=== PATIENT | male | born 1960 | race Caucasian/White ===

== ENCOUNTER 2020-10-01 19:56 | Emergency (ER) | payer MEDICARE ==
[2020-10-01 20:12] VITALS: BP 143/95; PULSE 102; TEMP 97.6; BMI 38.7
[2020-10-01] MEDS ORDERED: INDOMETHACIN 50 MG CAPSULE PO ONE (21:07)
[2020-10-01] MEDS ORDERED: INDOMETHACIN 25 MG CAPSULE ONE (21:09)
== END 2020-10-01 21:15 | disposition home or self-care (01) ==
LOC: FER 19:56
DX: M10.9 Gout, unspecified (principal)
CPT/HCPCS: 73560-TC-RT-FY; 99283-25

== ENCOUNTER 2020-10-06 19:42 | Inpatient (IN) | payer OTHER ==
[2020-10-06] MEDS ORDERED: SODIUM CHLORIDE IV STA (21:01)
[2020-10-06] MEDS ORDERED: SODIUM CHLORIDE 1,000 ML IV SCH (21:15)
[2020-10-06] MEDS ORDERED: HEPARIN NA (PORCINE) 5,000 UNITS/ML 1ML VIAL SQ SCH (22:00)
[2020-10-06 22:02] LABS: BASO % 0.4 % (0-2.0); EOS % 0.1 % (0-4.5); HEMATOCRIT 49.4 % (35.4-49); HEMOGLOBIN 17.1 GM/dL (11.7-16.9); LYMPH % 7.7 % (8-40); MCH 33.2 pg (25.7-33.7); MCHC 34.7 g/dl (32.0-35.9); MEAN CELL VOLUME 95.7 fl (80-96); MEAN PLT VOLUME 10.4 fl (7.5-11.1); MONO % 39.8 % (3.8-10.2); PLATELET COUNT 129 K/MM3 (134-434); RBC 5.17 M/mm3 (4.00-5.60); RDW 14.3 % (11.9-15.9)
[2020-10-06 22:09] LABS: INR 1.23 (0.83-1.09)
[2020-10-06] MEDS: HEPARIN NA (PORCINE) 5,000 UNITS/ML 1ML VIAL SQ SCH (22:09)
[2020-10-06] MEDS ORDERED: ALBUTEROL SO4 HFA INHALER IH PRN (22:11)
[2020-10-06 22:12] LABS: ACTIVATED PTT 35.4 SECONDS (25.2-36.5); WHITE BLOOD COUNT 1.7 K/mm3 (4.0-10.0)
[2020-10-06 22:29] LABS: CHLORIDE 99 mmol/L (98-107); POTASSIUM 5.2 mmol/L (3.5-5.1); SODIUM 130 mmol/L (136-145)
[2020-10-06 22:31] LABS: ALBUMIN 2.8 g/dl (3.4-5.0); ANION GAP 11 MMOL/L (8-16); BLOOD UREA NITROGEN 58.4 mg/dL (7-18); CO2 20 mmol/L (21-32); GLUCOSE,RANDOM 118 mg/dL (74-106); MAGNESIUM 1.4 mg/dL (1.8-2.4)
[2020-10-06 22:34] LABS: CREATININE 3.4 mg/dL (0.55-1.3); PHOSPHOROUS 4.4 mg/dL (2.5-4.9); SGPT/ALT 614 U/L (13-61)
[2020-10-06] MEDS ORDERED: MAGNESIUM SULF 50% (8.12 MEQ/2 ML-1 GM VIAL) IVPB ONE (22:34)
[2020-10-06 22:36] LABS: BILIRUBIN,TOTAL 3.7 mg/dL (0.2-1); TOT PROT 6.1 g/dl (6.4-8.2)
[2020-10-06 22:37] LABS: ALK PHOS 154 U/L (45-117)
[2020-10-06 23:05] LABS: CALCIUM 7.1 mg/dL (8.5-10.1); SGOT/AST 1786 U/L (15-37)
[2020-10-06 23:14] LABS: ANISOCYTOSIS 0; MACROCYTOSIS 0; PLATELET ESTIMATE DECREASED
[2020-10-07 00:39] VITALS: BMI 38.2
[2020-10-07] MEDS: HEPARIN NA (PORCINE) 5,000 UNITS/ML 1ML VIAL SQ SCH (06:55)
[2020-10-07] MEDS: INSULIN SLIDING SCALE (NOVOLOG) 1 VIAL SQ SCH ×4 (06:56→22:05)
[2020-10-07 07:10] LABS: VENOUS BASE EXCESS -10.7 mmol/L (-2-2); VENOUS O2 SATURATION 89.3 % (70-80); VENOUS PH 7.227 (7.310-7.410)
[2020-10-07 07:57] LABS: CHLORIDE 103 mmol/L (98-107); POTASSIUM 5.2 mmol/L (3.5-5.1); SODIUM 134 mmol/L (136-145)
[2020-10-07 08:00] LABS: ALBUMIN 2.4 g/dl (3.4-5.0); ANION GAP 12 MMOL/L (8-16); BLOOD UREA NITROGEN 62.4 mg/dL (7-18); CO2 19 mmol/L (21-32); GLUCOSE,RANDOM 56 mg/dL (74-106)
[2020-10-07 08:01] LABS: MAGNESIUM 1.9 mg/dL (1.8-2.4)
[2020-10-07 08:03] LABS: CREATININE 3.4 mg/dL (0.55-1.3); PHOSPHOROUS 5.8 mg/dL (2.5-4.9); SGPT/ALT 528 U/L (13-61)
[2020-10-07 08:04] LABS: BILIRUBIN,TOTAL 3.5 mg/dL (0.2-1)
[2020-10-07 08:05] LABS: ALK PHOS 131 U/L (45-117); TOT PROT 5.3 g/dl (6.4-8.2)
[2020-10-07 08:12] LABS: SGOT/AST 1573 U/L (15-37)
[2020-10-07 09:13] LABS: BASO % 0.2 % (0-2.0); EOS % 1.3 % (0-4.5); HEMATOCRIT 46.9 % (35.4-49); HEMOGLOBIN 16.2 GM/dL (11.7-16.9); LYMPH % 14.7 % (8-40); MCH 33.6 pg (25.7-33.7); MCHC 34.4 g/dl (32.0-35.9); MEAN CELL VOLUME 97.6 fl (80-96); MEAN PLT VOLUME 11.1 fl (7.5-11.1); MONO % 47.6 % (3.8-10.2); NEUT % 36.2 % (42.8-82.8); PLATELET COUNT 88 K/MM3 (134-434); RBC 4.81 M/mm3 (4.00-5.60); RDW 14.1 % (11.9-15.9)
[2020-10-07 09:41] LABS: EPI CELLS 3 /uL (0-25.1); HYALINE CASTS 1 /uL (0-3.1); URINE APPEARANCE TURBID; URINE BACTERIA 22 /uL (0-1359); URINE BILIRUBIN 1+ (NEGATIVE); URINE COLOR DK YELLOW; URINE GLUCOSE (UA) NEGATIVE (NEGATIVE); URINE KETONE NEGATIVE (NEGATIVE); URINE LEUK ESTERASE TRACE (NEGATIVE); URINE NITRITE NEGATIVE (NEGATIVE); URINE PROTEIN 2+ (NEGATIVE); URINE UROBILINOGEN 0.2 mg/dL (0.2-1.0); URINE WBC 4 /uL (0-25.8)
[2020-10-07] MEDS ORDERED: amLODIPine BESYLATE 10 MG TABLET (FP) PO SCH (10:00)
[2020-10-07] MEDS ORDERED: BUPRENORPHINE/NALOXONE 8 MG/2 MG FILM PACKET SL SCH (10:00)
[2020-10-07 10:19] LABS: WHITE BLOOD COUNT 1.4 K/mm3 (4.0-10.0)
[2020-10-07 10:35] LABS: BILIRUBIN,DIRECT 2.9 mg/dL (0.0-0.2)
[2020-10-07] MEDS ORDERED: PIPERACILLIN/TAZOB 4.5 GM 4.5 GM in DEXTROSE 5%-WATER 100 ML IVPB SCH ×2 (11:00→18:00)
[2020-10-07] MEDS ORDERED: DEXTROSE 5%-WATER 100 ML IVPB ONE (11:13)
[2020-10-07] MEDS ORDERED: PIPERACILLIN/TAZOBACTAM 4.5 GM VIAL IVPB ONE (11:13)
[2020-10-07 11:24] LABS: URINE RBC 329.3 /uL (0-23.9)
[2020-10-07 11:26] LABS: CHLORIDE 101 mmol/L (98-107); POTASSIUM 5.4 mmol/L (3.5-5.1); SODIUM 132 mmol/L (136-145)
[2020-10-07 11:26] LABS: RETICULOCYTES 0.77 % (0.5-1.5)
[2020-10-07 11:29] LABS: ALBUMIN 2.6 g/dl (3.4-5.0); ANION GAP 10 MMOL/L (8-16); BLOOD UREA NITROGEN 66.8 mg/dL (7-18); CO2 21 mmol/L (21-32); GLUCOSE,RANDOM 61 mg/dL (74-106)
[2020-10-07 11:32] LABS: BILIRUBIN,TOTAL 3.8 mg/dL (0.2-1); CREATININE 3.5 mg/dL (0.55-1.3); SGPT/ALT 533 U/L (13-61)
[2020-10-07 11:34] LABS: TOT PROT 5.7 g/dl (6.4-8.2)
[2020-10-07 11:35] LABS: ALK PHOS 139 U/L (45-117)
[2020-10-07 11:45] LABS: CALCIUM 6.7 mg/dL (8.5-10.1)
[2020-10-07 11:48] LABS: SGOT/AST 1761 U/L (15-37)
[2020-10-07 11:49] LABS: ANISOCYTOSIS 1+; MACROCYTOSIS 1+; PLATELET ESTIMATE DECREASED
[2020-10-07 12:29] LABS: CALCIUM 6.7 mg/dL (8.5-10.1)
[2020-10-07 13:07] LABS: METHADONE, UR NEGATIVE ng/ml (CUTOFF=300); OPIATES, URI NEGATIVE ng/ml (CUTOFF=300); PHENCYCLIDINE,URINE NEGATIVE ng/ml (CUTOFF=25); URINE AMPHETAMINES NEGATIVE ng/ml (CUTOFF=500); URINE BARBITURATES NEGATIVE ng/ml (CUTOFF=200); URINE BENZODIAZEPINES NEGATIVE ng/ml (CUTOFF=200)
[2020-10-07 13:12] LABS: COCAINE, UR NEGATIVE ng/ml (CUTOFF=300)
[2020-10-07] MEDS ORDERED: CALCIUM GLUCONATE IN NACL 1 GM/50 ML BAG IVPB ONE (14:00)
[2020-10-07] MEDS ORDERED: PT OWN MED DRAWER 7, Y5N ONE (14:12)
[2020-10-07] MEDS ORDERED: SODIUM CHLORIDE 1,000 ML IV SCH (16:05)
[2020-10-07] MEDS ORDERED: SODIUM ZIRCONIUM CYCLOSILICATE (LOKELMA) 5 GM PACKET PO ONE (16:06)
[2020-10-07] MEDS ORDERED: THIAMINE HCL 200 MG/2 ML VIAL IVPB ONE (17:20)
[2020-10-07] MEDS ORDERED: FOLIC ACID 1 MG TABLET (FP) PO ONE (17:21)
[2020-10-07] MEDS ORDERED: MULTIVITAMINS (DAILY MVI) TABLET (FP) PO ONE (17:21)
[2020-10-07] MEDS ORDERED: BUPRENORPHINE/NALOXONE 8 MG/2 MG FILM PACKET SL ONE ×2 (17:58→18:02)
[2020-10-07] MEDS ORDERED: DEXTROSE 5%-WATER - 50 ML IVPB ONE ×2 (18:03→22:51)
[2020-10-07] MEDS ORDERED: PIPERACILLIN/TAZOBACTAM 2.25 GM VIAL IVPB ONE ×2 (18:03→22:51)
[2020-10-07] MEDS: PIPERACILLIN/TAZOB 2.25 GM 2.25 GM in DEXTROSE 5%-WATER - 50 ML IVPB SCH ×2 (19:03→22:55)
[2020-10-07] MEDS: ALBUMIN HUMAN 25% 12.5 GM/50 ML VIAL IVPB SCH (22:18)
[2020-10-08 02:14] VITALS: BP 152/86; PULSE 91; TEMP 98.5
[2020-10-08] MEDS ORDERED: PIPERACILLIN/TAZOBACTAM 2.25 GM VIAL IVPB ONE (03:22)
[2020-10-08] MEDS ORDERED: DEXTROSE 5%-WATER - 50 ML IVPB ONE (03:22)
[2020-10-08] MEDS: ALBUMIN HUMAN 25% 12.5 GM/50 ML VIAL IVPB SCH (03:33)
[2020-10-08] MEDS: PIPERACILLIN/TAZOB 2.25 GM 2.25 GM in DEXTROSE 5%-WATER - 50 ML IVPB SCH (03:34)
[2020-10-08] MEDS ORDERED: MULTIVITAMINS (DAILY MVI) TABLET (FP) PO SCH (10:00)
[2020-10-08] MEDS ORDERED: THIAMINE HCL 100 MG TABLET (FP) PO SCH (10:00)
[2020-10-08] MEDS ORDERED: FOLIC ACID 1 MG TABLET (FP) PO SCH (10:00)
[2020-10-10 03:06] LABS: HEP B CORE AB, TOT Negative (Negative)
== END 2020-10-08 04:19 | disposition short-term general hospital (02) | DRG 441 ==
LOC: J4W 19:42
PROVIDERS: ADMIT Student in an Organized Health Care Education/Training Program
DX: K72.00 Acute and subacute hepatic failure without coma (principal); K76.7 Hepatorenal syndrome; N17.9 Acute kidney failure, unspecified; M62.82 Rhabdomyolysis; E87.1 Hypo-osmolality and hyponatremia; F11.20 Opioid dependence, uncomplicated; I24.8 Other forms of acute ischemic heart disease; E87.2 Acidosis; E11.9 Type 2 diabetes mellitus without complications; I10 Essential (primary) hypertension; M10.9 Gout, unspecified; R00.0 Tachycardia, unspecified; E86.0 Dehydration; R74.01 Elevation of levels of liver transaminase levels; E86.1 Hypovolemia; F10.20 Alcohol dependence, uncomplicated; D70.9 Neutropenia, unspecified; M25.561 Pain in right knee; E87.5 Hyperkalemia; R79.89 Other specified abnormal findings of blood chemistry; Z79.84 Long term (current) use of oral hypoglycemic drugs; D69.6 Thrombocytopenia, unspecified; Z20.822 Contact with and (suspected) exposure to COVID-19; E83.51 Hypocalcemia; E66.9 Obesity, unspecified; Z68.38 Body mass index [BMI] 38.0-38.9, adult; R09.02 Hypoxemia; E83.42 Hypomagnesemia
CPT/HCPCS: 36415; 76700-TC; 80053; 80307; 81003; 82248; 82436; 82550; 82553; 82565; 82693; 82803; 82962; 83735; 83880; 84100; 84133; 84156; 84300; 84484; 84540; 84550; 85025; 85045; 85610; 85730; 86704; 86706; 86707; 86708; 86709; 87040; 87045; 87046; 87086; 87324; 87340; 87449; 87522; 87529; C9803; J1644; P9047; U0003

== ENCOUNTER → 2020-10-06 | Emergency (ER) | payer MEDICARE, OTHER ==
[~2020-10-06] MED LIST: LOCK ITEM NR ONE; MAGNESIUM 1GM/D5W - 2 GM/200 ML IVPB IVPB ONE; MAGNESIUM SULF 50% (8.12 MEQ/2 ML-1 GM VIAL) IVPB ONE; SODIUM CHLORIDE 1,000 ML IV SCH
[2020-10-06 11:35] VITALS: BMI 39.5
[2020-10-06 12:55] LABS: ALBUMIN 3.3 g/dl (3.4-5.0); BILIRUBIN,TOTAL 4.4 mg/dl (0.2-1); CALCIUM 7.2 mg/dl (8.5-10); CREATININE 2.7 mg/dl (0.55-1.3); MAGNESIUM 0.8 mg/dL (1.8-2.4); POTASSIUM 4.6 mmol/L (3.5-5.1); TOT PROT 6.6 g/dl (6.4-8.2)
[2020-10-06 13:13] LABS: HEMATOCRIT 54.4 % (35.4-49); HEMOGLOBIN 18.1 GM/dl (11.7-16.9); MCH 32.4 pg (25.7-33.7); MCHC 33.2 g/dl (32.0-35.9); MEAN CELL VOLUME 97.5 fl (80-96); MEAN PLT VOLUME 10.6 fl (7.5-11.1); PLATELET COUNT 131 K/MM3 (134-434); RBC 5.58 M/mm3 (4.00-5.60); RDW 14.2 % (11.9-15.9); WHITE BLOOD COUNT 1.9 K/mm3 (4.0-10.8)
[2020-10-06 13:15] LABS: ADD RBC MORPHOLOGY YES
[2020-10-06 14:24] LABS: VENOUS BASE EXCESS -2.9 mmol/L (-2-2); VENOUS O2 SATURATION 91.6 % (70-80); VENOUS PCO2 38.5 mmHg (38-52); VENOUS PH 7.371 (7.310-7.410)
[2020-10-06 15:37] LABS: PLATELET ESTIMATE ADEQUATE
[2020-10-06 16:36] VITALS: TEMP 98.2
[2020-10-06 18:56] VITALS: BP 150/90; PULSE 96
== END ==
LOC: FER 11:17
PROC: 3E033GC Introduction of Other Therapeutic Substance into Peripheral Vein, Percutaneous Approach (ICD-10-PCS; principal; 2020-10-06)
DX: E83.42 Hypomagnesemia (principal); R74.01 Elevation of levels of liver transaminase levels; D72.819 Decreased white blood cell count, unspecified; E87.1 Hypo-osmolality and hyponatremia
CPT/HCPCS: 36415; 71045-TC-FY; 74176-TC; 80053; 82550; 82803; 82962; 83605; 83735; 83880; 84484; 85025; 93005; 99285-25; C9803; U0003